=== PATIENT | female | born 1965 | race Caucasian/White ===

== ENCOUNTER 2018-11-24 12:08 | Emergency (ER) | payer SELFPAY ==
[~2018-11-24] VITALS: Ht 160 cm; Wt 65.0 kg
[2018-11-24 12:18] VITALS: BP 142/86
== END 2018-11-24 16:31 | disposition left against medical advice (07) ==
LOC: ER 12:08
DX: Z53.21 Procedure and treatment not carried out due to patient leaving prior to being seen by health care provider (principal); I10 Essential (primary) hypertension
CPT/HCPCS: 82962